=== PATIENT | male | born 1985 | race African-American/Black ===

== ENCOUNTER 2019-08-19 20:07 | Inpatient (IN) ==
[2019-08-19 21:46] LABS: Apearance,Urine CLEAR (Clear); Bilirubin,Urine Moderate mg/dL (Negative); Blood, Urine Negative (Negative); Glucose,Urine (UA) Negative (Negative); Ketones,Urine Negative (Negative); Mucus,Urine Occasional /LPF (Occasional); Nitrite,Urine Negative (Negative); Protein,Urine Negative; RBC,Urine 2 /HPF (0-4); Squamous Epithelial Cell,Urine Occasional /HPF (0-10); Urine Color Amber (Yellow); Urine Specific Gravity 1.025 (1.001-1.035); WBC,Urine 1 /HPF (0-6)
[2019-08-19 21:48] LABS: Basophils % 0.7 % (0.0-0.8); Eosinophils # 0.1 10*3/uL (0.0-0.87); Eosinophils % 2.2 % (0.00-10.9); Hematocrit 42.4 VOL% (42.0-52.0); Hemoglobin 14.3 GM/DL (14.0-18.0); Immature Granulocytes % 0.2 %; Immature Granulocytes Absolute 0.01 #; Lymphocytes # 1.1 10*3/uL (1.4-4.0); Lymphocytes % 23.9 % (21.2-54.2); Mean Corpuscular HGB Conc 33.7 GM/DL (32-36); Mean Corpuscular Volume 88.3 FL (87-102); Mean Platelet Volume 10.2 FL (9.6-12.0); Monocytes % 18.3 % (1.7-12.7); Neutrophils % 54.7 % (38.7-73.9); Platelet Count 266 T/CUMM (130-400); Red Cell Distribution Width 15.2 % (9.3-17.3); White Blood Count 4.5 T/CUMM (4-12)
[2019-08-19 22:16] LABS: Lymphocytes 33 % (20-55); Platelet Estimate Normal; Segmented Neutrophils 54 % (50-85); Total Cells Counted 100
[2019-08-19 22:34] LABS: Albumin 3.8 G/DL (3.4-5.0); Bilirubin,Total 6.8 MG/DL (0.2-1.0); Calcium 8.8 MG/DL (8.5-10.1); Osmolality,Calculated 274.7 MOS/KG (273-304); Total Protein 7.7 G/DL (6.4-8.3)
[2019-08-19 22:56] LABS: Hepatitis B Core IgM Quant > 9.00 Index; Hepatitis C Virus Ab Quant 0.11 Index; Hepatitis C Virus Ab Result Negative (Negative)
[2019-08-19 23:26] LABS: Hepatitis B Surface Ag Quant > 1000.00 Index
[2019-08-19 23:27] LABS: Hepatitis B Surface Ag Result Positive (Negative)
[2019-08-19] MEDS ORDERED: ONDANSETRON 4 MG/2 ML VIAL IV PRN (23:51)
[2019-08-19] MEDS ORDERED: diphenhydrAMINE CAP 25 MG CAPSULE PO PRN (23:51)
[2019-08-19] MEDS ORDERED: guaiFENesin/DM ER 600-30 MG TABLET PO PRN (23:51)
[2019-08-19] MEDS ORDERED: hydrALAZINE 20 MG/1 ML VIAL IV PRN (23:51)
[2019-08-19] MEDS ORDERED: NICOTINE 21 MG/24 HR PATCH TRANSDERM PRN (23:51)
[2019-08-19] MEDS ORDERED: MORPHINE 4 MG/1 ML VIAL IV PRN (23:51)
[2019-08-19] MEDS ORDERED: DEXTROSE 50% 25 GM/50 ML VIAL IV PRN (23:51)
[2019-08-19] MEDS ORDERED: GLUCAGON 1 MG VIAL IM PRN (23:51)
[2019-08-19] MEDS ORDERED: ZALEPLON 5 MG CAPSULE PO PRN (23:51)
[2019-08-20] MEDS: SODIUM CHLORIDE 0.9% 1,000 ML IV SCH ×3 (02:51→19:52)
[2019-08-20 04:48] LABS: Basophils % 0.4 % (0.0-0.8); Eosinophils # 0.1 10*3/uL (0.0-0.87); Eosinophils % 1.4 % (0.00-10.9); Hematocrit 40.5 VOL% (42.0-52.0); Hemoglobin 13.7 GM/DL (14.0-18.0); Immature Granulocytes % 0.2 %; Immature Granulocytes Absolute 0.01 #; Lymphocytes # 1.4 10*3/uL (1.4-4.0); Mean Corpuscular HGB Conc 33.8 GM/DL (32-36); Mean Corpuscular Volume 86.5 FL (87-102); Platelet Count 265 T/CUMM (130-400); Red Blood Count 4.68 MC/CUMM (3.8-5.5); White Blood Count 5.1 T/CUMM (4-12)
[2019-08-20 05:21] LABS: Osmolality,Calculated 271.8 MOS/KG (273-304)
[2019-08-20 06:07] LABS: Band Neutrophils 1 % (0-10); Eosinophils 2 % (0-10); Lymphocytes 29 % (20-55); Segmented Neutrophils 51 % (50-85); Total Cells Counted 100
[2019-08-20 06:08] LABS: Anisocytosis Slight; Platelet Estimate Normal
[2019-08-20 06:10] LABS: Macrocytosis Slight
[2019-08-20 07:03] LABS: Albumin 3.4 G/DL (3.4-5.0); Bilirubin,Direct 5.66 MG/DL (0.0-0.20); Bilirubin,Indirect 1.5 MG/DL (0.0-1.0); Bilirubin,Total 7.2 MG/DL (0.2-1.0); Total Protein 7.2 G/DL (6.4-8.3)
[2019-08-20 12:42] LABS: Hepatitis B Surface Ab Result Negative
[2019-08-20 13:22] LABS: HIV Antigen/Antibody Result Nonreactive (Nonreactive)
[2019-08-20 13:31] LABS: INR 1.2
[2019-08-20] MEDS: DOCUSATE SODIUM 100 MG CAPSULE PO SCH ×2 (15:00→21:59)
[2019-08-20] MEDS: ENOXAPARIN 40 MG/0.4 ML SYRINGE SUBCUT SCH (15:00)
[2019-08-20] MEDS: PANTOPRAZOLE 40 MG TABLET PO SCH (15:01)
[2019-08-21 07:14] LABS: INR 1.2
[2019-08-21 07:37] LABS: Albumin 3.1 G/DL (3.4-5.0); Bilirubin,Total 8.2 MG/DL (0.2-1.0); Calcium 8.5 MG/DL (8.5-10.1); Osmolality,Calculated 277.4 MOS/KG (273-304); Total Protein 6.6 G/DL (6.4-8.3)
[2019-08-21] MEDS: SODIUM CHLORIDE 0.9% 1,000 ML IV SCH ×2 (08:00→16:05)
[2019-08-21] MEDS: DOCUSATE SODIUM 100 MG CAPSULE PO SCH ×2 (10:02→20:00)
[2019-08-21] MEDS: PANTOPRAZOLE 40 MG TABLET PO SCH (10:02)
[2019-08-21] MEDS: ENOXAPARIN 40 MG/0.4 ML SYRINGE SUBCUT SCH (14:45)
[2019-08-22] MEDS: SODIUM CHLORIDE 0.9% 1,000 ML IV SCH ×6 (00:28→22:03)
[2019-08-22 07:43] LABS: INR 1.2
[2019-08-22 08:09] LABS: Albumin 3.1 G/DL (3.4-5.0); Bilirubin,Total 9.5 MG/DL (0.2-1.0); Calcium 8.9 MG/DL (8.5-10.1); Osmolality,Calculated 275.4 MOS/KG (273-304); Total Protein 6.4 G/DL (6.4-8.3)
[2019-08-22 08:12] LABS: Albumin 3.1 G/DL (3.4-5.0); Bilirubin,Direct 7.16 MG/DL (0.0-0.20); Bilirubin,Indirect 2.7 MG/DL (0.0-1.0); Bilirubin,Total 9.9 MG/DL (0.2-1.0); Total Protein 6.4 G/DL (6.4-8.3)
[2019-08-22] MEDS: PANTOPRAZOLE 40 MG TABLET PO SCH (09:45)
[2019-08-22] MEDS: DOCUSATE SODIUM 100 MG CAPSULE PO SCH ×2 (09:45→21:02)
[2019-08-22] MEDS: ENOXAPARIN 40 MG/0.4 ML SYRINGE SUBCUT SCH (14:00)
[2019-08-23] MEDS: SODIUM CHLORIDE 0.9% 1,000 ML IV SCH ×2 (05:15→11:43)
[2019-08-23 06:17] LABS: INR 1.3; PT Patient Result 13.5 SECS (9.8-11.9)
[2019-08-23 06:41] LABS: Albumin 2.9 G/DL (3.4-5.0); Bilirubin,Total 8.9 MG/DL (0.2-1.0); Calcium 8.5 MG/DL (8.5-10.1); Osmolality,Calculated 273.5 MOS/KG (273-304); Total Protein 6.1 G/DL (6.4-8.3)
[2019-08-23] MEDS: DOCUSATE SODIUM 100 MG CAPSULE PO SCH (08:16)
[2019-08-23] MEDS: PANTOPRAZOLE 40 MG TABLET PO SCH (08:16)
[2019-08-23 12:24] VITALS: BP 133/82
== END 2019-08-23 13:53 | disposition home or self-care (01) | DRG 441 ==
LOC: N.ED 20:07 → SUATTDRO 23:51 → N.EDINP 23:51 → N.TELEN 08-20 12:13
PROVIDERS: ADMIT Internal Medicine; ATTEND Family Medicine